=== PATIENT | female | born 1960 | race Caucasian/White ===

== ENCOUNTER → 2016-05-19 | Outpatient (CLI) | payer BC, OTHER ==
[~2016-05-19] VITALS: Ht 177.8 cm; Wt 79.5 kg
[~2016-05-19] MED LIST: COMPAZINE5 MG PO; GLUCOSAMINE HC500 MG; HYDROCODON-ACE1 EAC5 PO; HYDROCODONE-APA1 TA1; LEVOTHYROXINE0.05 MG; LOPRESSOR25 PO; MAXZIDE-25 MG1 EACH PO; MOBIC15 MG PO; NEURONTIN 300300 M1 PO; ORPHENADRINE C100 M2 PO; OXYCONTIN10 M1 PO; POTASSIUM20; PROZAC; UNICOMPLEX M TA1 TA1; [UNRECOGNIZED DRUG - CODE]
--- NOTE | ~2016-05-19 | HPC ---
[facility] [place] [address] PAIN MANAGEMENT CONSULTATION Name: ONI KENT Room #: REG [place] Field#: [id number] Admission: 05/19/16 Attend Phys: Celestino Max, DO Discharge: Date of : 62 Report #: [id number] THIS REPORT FOR: //name// CC: Jake Max The patient is a pleasant 56-year-old female being treated for symptomatic cervical radiculopathy status post decompressive laminectomy, neuropathic pain component and myofascial pain symptom. The patient on 01/31/2016 was evaluated, she had been given a single epidural injection and marked with 90% improvement of pain. Repeat injection afforded a little bit less efficacy. I ordered EMG, which was obtained, EMG accomplished 02/21/[address] Butler notes mild ulnar neuropathy (right) with no electrophysiologic evidence of right carpal tunnel syndrome nor cervical radiculopathy. The patient has been working with physical therapy ([facility]) last visit was 05/17/2016. They suggested that the patient's symptoms were consistent with "cervical, thoracic instability." Nonetheless, she had been doing very well with physical therapy in March, though in April, she developed some GI issues and got busy with the holidays and stopped doing the exercises and her symptoms recurred. Physical evaluation suggested patient would benefit from renewing physical therapy. She returns to the pain clinic today, we had a prolonged visit. She is seen in the company of her . She was seen from approximately 14:15 to 14:40, we spent this time reviewing several issues. She notes her cervical radicular symptoms did improve with physical therapy, they are beginning to recur. She rates her pain, maybe a 3 on a 0-10 visual analog scale, primarily right arm. She is also noting some pain in the right hip and does appear to have a little bit of a right trochanteric bursitis. She notes this is chronic and seems to be exacerbated if she sits for a period of time, pain in the right hip is exacerbated when she stands. PHYSICAL EXAMINATION: Shows a 56-year-old female, BMI is 25.1 kilograms per meter squared. Vital signs are stable as noted in the EMR. Cervical range of motion is full, Lehmitte is negative. Upper extremity strength is preserved. Biceps, triceps, brachioradialis reflexes are symmetric. Hand grasp is symmetric. Tinel's is negative. Rises from chair easily. Gait is tandem though she does have a slight palpable nodule over the right trochanteric bursa. This is very tender to palpation. Passive rotation of the hip slightly exacerbates pain. Narendra test is negative. ASSESSMENT: Cervical radiculopathy, status post decompressive laminectomy, neuropathic pain component, relatively quiescent at present, myofascial pain, and right trochanteric bursitis. RECOMMENDATION: Discussion at length with the patient about therapeutic [address] [address] PAIN MANAGEMENT CONSULTATION Name: YOLIONI Yeimi Room #: REG [facility] Field#: [id number] Admission: 05/19/16 Attend Phys: Celestino Max DO Discharge: Date of : 62 Report #: [id number] options. Currently, she is utilizing appropriate medications through Dr. Whitmore. I will renew physical therapy for right shoulder and arm. We did discuss range of motion and stretching as well as aerobic activity including Tia Chi exercises. The patient and were interested in pursuing this. I will see the patient simply on an as needed basis if she has recurrence of radicular symptoms and/or if that right trochanteric bursitis becomes problematic to the point that she requires interventional therapy (trochanteric bursa injection). Thanks for allowing me to participate in the patient's care. Discharged in good and stable condition after 25+ minute visit was spent counseling the patient. <ELECTRONICALLY SIGNED> By: Celestino Max DO 05/22/16 0917 [id number] [id number] Celestino Max DO /nt
[2016-05-19 13:52] VITALS: BP 123/79
== END ==
LOC: PAIN 07:10
DX: M54.12 Radiculopathy, cervical region (principal); M96.1 Postlaminectomy syndrome, not elsewhere classified; M79.1 Myalgia; M70.61 Trochanteric bursitis, right hip; I10 Essential (primary) hypertension

== ENCOUNTER → 2016-08-10 | Outpatient (CLI) | payer BC, OTHER ==
[~2016-08-10] VITALS: Ht 175.3 cm; Wt 77.2 kg
[~2016-08-10] MED LIST changes: +CYMBALTA30 MG PO; +MIMVEY LO 0.5-1 EACH PO; +ZANAFLEX4 MG PO
--- NOTE | ~2016-08-10 | HPC ---
[facility] [place] [address] PAIN MANAGEMENT CONSULTATION Name: ONI KENT Room #: REG [facility] Rashida#: [id number] Admission: 08/10/16 Attend Phys: Celestino Max DO Discharge: Date of : 62 Report #: [id number] THIS REPORT FOR: //name// CC: Jake Max The patient is a 56-year-old female, typically treated for cervical radiculopathy, status post decompressive laminectomy, neuropathic pain, and right trochanteric bursitis. The patient was last seen in pain clinic on 05/19/2016. She had 2 cervical epidural injections 2015 with about 90% improvement. I did obtain an EMG in February of the upper extremities, noted a mild right ulnar neuropathy with no electrophysiologic evidence of carpal tunnel or cervical radicular neuropathies. At last visit, she was noting increasing pain in the right hip and low back. Diagnosed with trochanteric bursitis at that time, suggested physical therapy. I talked about possibly trochanteric bursa injection. In the interval since I last saw her, she did have an IM injection of steroid with nominal improvement. This was given simply in the gluteal area, not at the area of tenderness. She did get an MRI of the right hip with ongoing pain in this area. The MRI does note no evidence of mass lesion, marked gluteus medius tendinosis and mild gluteus minimus tendinosis, mild to moderate right osteoarthritis. She notes ongoing pain in the right gluteal area. No specific radicular symptoms are noted. She does; however, have a lot of myalgias that are transitory, they appears to be more of a fibromyalgia ____ picture. She does take a low dose serotonin reuptake inhibitor (Prozac 10 mg daily). PHYSICAL EXAMINATION: Shows a 56-year-old female, BMI is 25.1 kg/m2. Blood pressure is 129/80, pulse 94, and respirations 16. Alert and oriented to person, place and time, judged to be a reasonable historian. Rises from chair using armrest. She has some tenderness in the right hip. Modestly antalgic gait, point tenderness over the right trochanteric bursa and point tenderness in the gluteus minimus and medius. Active resistance to rotation does not exacerbate pain (negative piriformis). Narendra test is negative (negative SI mediated pain). She does have pain with active abduction of the hip. Again, history of some myalgias in the upper back, which are not present at this time. ASSESSMENT: 1. Component of myofascial pain. We talked today about medication management. We have elected to start the patient on low dose Cymbalta 30 mg concurrent with her Prozac 10 mg. I will see her back in 4 weeks for reevaluation. Our plan will be to increase to 60 mg of Cymbalta and discontinue Prozac. 2. Right trochanteric bursitis and myofascial pain affecting right gluteus [address] [address] PAIN MANAGEMENT CONSULTATION Name: ONI KENT Yeimi Room #: REG [facility] Field#: [id number] Admission: 08/10/16 Attend Phys: Celestino Max DO Discharge: Date of : 62 Report #: [id number] medius and gluteus minimus. RECOMMENDATION: 1. Right trochanteric bursa injection today and right trigger point injections times 2, right gluteus medius and gluteus minimus muscle groups. 2. Stretch, ice, yoga and tiana chi were all discussed today. Follow up in 30 days for reevaluation. I did also take the liberty of discontinuing the patient's orphenadrine and we will trial tizanidine 4 mg 1-2 at bedtime. PROCEDURE NOTE: Right trochanteric bursa injection. After written informed consent was obtained, the patient was placed in the left lateral decubitus position. Skin overlying the bursa was cleansed with alcohol. Using a 25-gauge needle, approximately 30 mg triamcinolone plus 3 mL of local anesthesia (50:50 mix of 0.5% preservative-free bupivacaine plus 1.5% preservative-free Xylocaine with 1:200,000 epinephrine) was injected into and around the right trochanteric bursa. Attention was then directed at the right gluteus medius and gluteus minimus muscle groups with multiple trigger points noted within. Area was cleansed with alcohol. Using another 25-gauge needle, again 30 mg of triamcinolone plus 6 mL of the same local anesthetic was injected into and around the 2 discrete trigger points. All needles removed, the area was cleansed, Band-Aids applied. The patient was monitored for an appropriate period of time, discharged in good and stable condition, noting 60% improvement in baseline pain (baseline pain was 5/10 on admission, 2/10 on discharge). Thank you for allowing me to participate in the patient's care. I will see her back in 4 weeks for reevaluation. By: 1228 2250 Celestino Max, DO /nt
[2016-08-10 10:33] VITALS: BP 129/80
== END | disposition home or self-care (01) ==
LOC: PAIN 06:58
DX: M70.61 Trochanteric bursitis, right hip (principal); M54.12 Radiculopathy, cervical region; M79.1 Myalgia; Z98.890 Other specified postprocedural states

== ENCOUNTER → 2016-09-07 | Outpatient (CLI) | payer BC, OTHER ==
[~2016-09-07] VITALS: Ht 177.8 cm; Wt 75.7 kg
[~2016-09-07] MED LIST changes: +CYMBALTA60 MG PO
--- NOTE | ~2016-09-07 | HPC ---
[facility] [address] [place] [address] PAIN MANAGEMENT CONSULTATION Name: ONI KENT Room #: REG [facility]#: [id number] Admission: 09/07/16 Attend Phys: Celestino Max DO Discharge: Date of : 62 Report #: [id number] THIS REPORT FOR: //name// CC: Jake Max The patient is a 56-year-old female being treated for symptomatic cervical radiculopathy status post decompressive laminectomy, neuropathic pain. Last visit, she was having some right trochanteric bursitis, injected that joint with some trigger points and component of myofascial pain. Returns to pain clinic today noting that the hip and myofascial pain component is significantly improved. In fact rates pain down to 1 on a 0-10 visual analog scale. Notes "70%" improvement following the injection. Primary concern remains right shoulder pain. She has paresthesia going into the fingers using the computer. PHYSICAL EXAMINATION: Shows a 56-year-old female, BMI is 23.9 kilograms per meter squared. Vital signs stable as noted in the EMR. Cervical range of motion is limited, positive limit. Pain going into the right shoulder, has some muscle spasm in the right trapezius and suprascapular muscles. Deep tendon reflexes are diminished on the right compared to the left. Hand grasp is symmetric at this time. Reviewed the MRI from 07/26/2015 noting postoperative fusion, posterior bridging and stenosis. Fusion is C5-C6. Disk space narrowing is noted at C6-C7. ASSESSMENT: Symptomatic cervical radiculopathy status post decompressive laminectomy in a patient requiring complex medication management. RECOMMENDATION: Continue Cymbalta. We will increase from 30 to 60 mg, which was started at last visit is helping with myofascial pain component. Discontinue Prozac. We will continue tizanidine 4 mg 1 to 2 at bedtime. She does not require the latter prescription. We will evaluate efficacy of the increase in Cymbalta in about 2-3 weeks, likely benefit from repeat cervical epidural injection. Prior cervical epidural injections in July and December of last year did give good relief of these right radicular symptoms. If symptoms continue; however, we will want to have patient revisit with neurosurgery. Discharged in good and stable condition. <ELECTRONICALLY SIGNED> By: Celestino Max DO 09/08/16 1308 0740 0930 Celestino Max DO /nt
[2016-09-07 14:36] VITALS: BP 124/84
== END | disposition home or self-care (01) ==
LOC: PAIN 07:34
DX: M54.12 Radiculopathy, cervical region (principal); G62.9 Polyneuropathy, unspecified; M70.61 Trochanteric bursitis, right hip; M79.1 Myalgia

== ENCOUNTER → 2016-09-29 | Outpatient (CLI) | payer BC, OTHER ==
[~2016-09-29] VITALS: Ht 177.8 cm; Wt 74.8 kg
--- NOTE | ~2016-09-29 | HPC ---
[facility] [place] [address] PAIN MANAGEMENT CONSULTATION Name: ONI KENT Room #: REG [facility] [id number] Admission: 09/29/16 Attend Phys: Celestino Max DO Discharge: Date of : 62 Report #: [id number] THIS REPORT FOR: //name// CC: Jake Max HISTORY OF PRESENT ILLNESS: The patient is a pleasant 56-year-old female being treated for cervical radiculopathy status post ACDF, neuropathic pain requiring complex medication management, history of right trochanteric bursitis. Last seen in pain clinic on 09/07/2016, started Cymbalta 30 mg and increased to 60 mg (had the patient discontinue the Prozac at that time), continued tizanidine for muscle spasm. Returns to pain clinic today noting that overall axial back and right hip pain is improved. She thinks that the Cymbalta is helpful. She is requesting renewal on tizanidine. She uses this up to 3 times a day. She is also noting exacerbation of C7 radicular symptoms with paresthesia going into the right index and thumb. PHYSICAL EXAMINATION: Shows 56-year-old female, BMI is 23.7 kilograms per meter squared, blood pressure 113/86, pulse 81, respirations 16. Positive Lhermitte's. Decreased right triceps strength, decreased right triceps deep tendon reflexes all compared to the left. ASSESSMENT: Symptomatic cervical radiculopathy by clinical exam and history. RECOMMENDATION: cervical epidural injection under fluoroscopy today, the patient had prior had good relief with cervical epidural injections back in 2007 and 2005. PROCEDURE: Cervical epidural injection under fluoroscopy. PROCEDURE NOTE: After written and informed consent was obtained including risk of dural puncture, spinal cord trauma, paralysis and increased pain, the patient was taken to the fluoroscopy suite and placed in the prone position, with appropriate abdominal bolstering, neck was flexed, palms under the thighs. Skin was prepped with ChloraPrep. Sterile draping was applied. Skin wheal with 1% Xylocaine was raised. A 22-gauge 3-1/2 inch epidural Tuohy needle was placed via a midline approach at the C7-T1 interspace, advanced under biplanar fluoroscopy using continuous loss of resistance. With appropriate loss of resistance at the expected depth on lateral view, the glass loss of resistance syringe was disconnected. A low volume extension tubing was connected to the needle and a 5 mL syringe. Negative aspiration for cerebrospinal fluid or blood was noted. A 1 mL of Omnipaque was injected which showed spread within the epidural space on biplanar fluoroscopy. This was followed with 80 mg of triamcinolone plus 1 mL of 1.5% preservative Xylocaine. Needle was withdrawn to the interspinous ligament, 0.5 mL of Xylocaine was used to flush the needle. The needle was then completely withdrawn. The area was cleansed. Band-Aid was [address] [address] PAIN MANAGEMENT CONSULTATION Name: ONI KENT Room #: REG [facility] Field#: [id number] Admission: 09/29/16 Attend Phys: Celestino Max DO Discharge: Date of : 62 Report #: [id number] applied. The patient was allowed to move off the procedure table and ambulated to the recovery room, monitored for an appropriate period of time, discharged in good and stable condition. By: 1233 Celestino Max DO /wilton
[2016-09-29 10:52] VITALS: BP 113/86
== END | disposition home or self-care (01) ==
LOC: PAIN 05:50
DX: M54.12 Radiculopathy, cervical region (principal); G89.29 Other chronic pain; Z98.890 Other specified postprocedural states

== ENCOUNTER → 2016-10-23 | Outpatient (CLI) | payer BC, OTHER ==
[~2016-10-23] VITALS: Ht 177.8 cm; Wt 76.1 kg
--- NOTE | ~2016-10-23 | HPC ---
[facility] [place] [address] PAIN MANAGEMENT CONSULTATION Name: ONI KENT Room #: REG [facility]#: [id number] Admission: 10/23/16 Attend Phys: Celestino Max DO Discharge: Date of : 62 Report #: [id number] THIS REPORT FOR: //name// CC: Jake Max DATE OF SERVICE: 10/23/2016 The patient is a very pleasant 56-year-old female being treated for cervical radiculopathy status post decompressive surgery and neuropathic pain component. The patient was last seen in the pain clinic 09/30/2015. She was having ongoing right cervical radicular symptoms. We progressed with cervical epidural injection at that time. This afforded "100% relief" for 3 days and the pain began to recur. She does, however, note that today, pain is fairly nominal 1 on a 0-10 visual analog scale; however, with specific activities, specifically cervical extension or significant range of motion of the right arm, she does have recurrent pain in the neck, right shoulder and arm. PHYSICAL EXAMINATION: Shows positive Lhermitte's, actually fairly good upper extremity strength. No discernible trigger points are noted in the splenius capitis, trapezius or upper thoracic paravertebral muscles, though she is diffusely tenderness throughout. ASSESSMENT: Symptomatic cervical radiculopathy and neuropathic pain component. The patient had had a cervical surgery sometime ago. Does have some ongoing cervical radicular symptoms. RECOMMENDATIONS: After discussion with the patient, we elected to seek authorization to repeat epidural injection under fluoroscopy at C7-T1. If this does not afford ongoing adequate relief, we will order newer MRI (prior MRIs dated from 07/2015). We will then refer the patient back to her neurosurgeon for consideration for further definitive intervention if indicated. Discharged in good and stable condition. Follow up on 10/30/2016 for repeat cervical epidural injection under fluoroscopy. Again, if this does not afford adequate relief in 1-2 weeks, we will get another MRI with and without contrast of the cervical spine in consideration of further definitive intervention. By: [id number] Celestino Max DO /nt
[2016-10-23 11:13] VITALS: BP 142/94
== END | disposition home or self-care (01) ==
LOC: PAIN 06:53
DX: M54.12 Radiculopathy, cervical region (principal); G89.29 Other chronic pain; Z88.0 Allergy status to penicillin; Z88.2 Allergy status to sulfonamides; Z88.8 Allergy status to other drugs, medicaments and biological substances; Z98.890 Other specified postprocedural states

== ENCOUNTER → 2016-10-30 | Outpatient (CLI) | payer BC, OTHER ==
[~2016-10-30] VITALS: Ht 177.8 cm; Wt 75.7 kg
--- NOTE | ~2016-10-30 | HPC ---
[facility] [place] [address] PAIN MANAGEMENT CONSULTATION Name: ONI KENT Room #: REG [facility] Rashida#: [id number] Admission: 10/30/16 Attend Phys: Celestino Max DO Discharge: Date of : 62 Report #: [id number] THIS REPORT FOR: //name// CC: Jake Max HISTORY OF PRESENT ILLNESS: The patient is a very pleasant 56-year-old female seen in consultation on 10/23/2016. She is status post anterior cervical disk fusion with ongoing radicular symptoms, last was on 10/23/2016. We sought authorization for cervical epidural injection under fluoroscopy. She presents to the pain clinic today for that injection. We will tentatively make an appointment to see her back in 2 weeks. If she does not had excellent relief with this injection, we will order an MRI with and without contrast. ASSESSMENT: Symptomatic cervical radiculopathy. PROCEDURE: Cervical epidural injection under fluoroscopy. PROCEDURE NOTE: After written and informed consent was obtained including risk of dural puncture, spinal cord trauma, paralysis and increased pain, the patient was taken to the fluoroscopy suite and placed in the prone position, with appropriate abdominal bolstering, neck was flexed, palms under the thighs. Skin was prepped with ChloraPrep. Sterile draping was applied. Skin wheal with 1% Xylocaine was raised. A 22-gauge 3-1/2 inch epidural Tuohy needle was placed via a midline approach at the C7-T1 interspace, advanced under biplanar fluoroscopy using continuous loss of resistance. With appropriate loss of resistance at the expected depth on lateral view, the glass loss of resistance syringe was disconnected. A low volume extension tubing was connected to the needle and a 5 mL syringe. Negative aspiration for cerebrospinal fluid or blood was noted. A 1 mL of Omnipaque was injected which showed spread within the epidural space on biplanar fluoroscopy. This was followed with 80 mg of triamcinolone plus 1 mL of 1.5% preservative Xylocaine. Needle was withdrawn to the interspinous ligament, 0.5 mL of Xylocaine was used to flush the needle. The needle was then completely withdrawn. The area was cleansed. Band-Aid was applied. The patient was allowed to move off the procedure table and ambulated to the recovery room, monitored for an appropriate period of time, discharged in good and stable condition. <ELECTRONICALLY SIGNED> By: Celestino Max DO 11/03/16 1606 1550 2104 Celestino Max DO /nt
[2016-10-30 14:04] VITALS: BP 117/82
== END | disposition home or self-care (01) ==
LOC: PAIN 06:57
DX: M54.12 Radiculopathy, cervical region (principal)

== ENCOUNTER → 2016-12-08 | Outpatient (CLI) | payer BC, OTHER | LOC: RAD 11:12 | DX: Z12.31 Encounter for screening mammogram for malignant neoplasm of breast (principal) ==

== ENCOUNTER → 2017-01-19 | Outpatient (CLI) | payer BC, OTHER ==
[~2017-01-19] VITALS: Ht 177.8 cm; Wt 73.5 kg
--- NOTE | ~2017-01-19 | HPC ---
[facility] [address] [place] [address] PAIN MANAGEMENT CONSULTATION Name: ONI KENT Yeimi [facility] #: [facility] [id number] Admission: 01/19/17 Attend Phys: Celestino Max DO Discharge: Date of : 62 Report #: [id number] THIS REPORT FOR: //name// CC: Jake Max DATE OF SERVICE: 01/19/2017 The patient is a 56-year-old female being treated for symptomatic cervical radiculopathy status post ACDF. She has had cervical epidural injections 09/29/2016 and 10/30/2016. Injections afforded very good near 100% relief, but pain has recurred. First injection gave 100% relief for several days. Second injection actually gave 60% relief for 2-3 months, but again, pain has begun to recur. She notes currently pain is in the neck, right shoulder and arm, chronic tingling, aching sensation, rates pain of 4-5 on a VAS, seems to be exacerbated with activity, using her arm and movement. I had reviewed MRI of the cervical spine from 07/2015, the patient had the aforenoted ACDF, anterior screws and plates affixing C5 and C6. Neural foraminal narrowing at C4-C5 with facet changes and some slight ridging at C5-C6, but no dramatic stenosis. With ongoing cervical radicular symptoms with transient improvement following epidural injections, I had ordered an EMG, this was obtained 02/21/2016. It showed some mild right ulnar neuropathy but no significant cervical radiculopathy on EMG findings. Again, however, we left the patient with classic cervical radicular symptoms by history. PHYSICAL EXAMINATION: Today shows 56-year-old female, BMI is 23.2 kilograms per meter squared. Blood pressure 119/80, pulse 67, respirations 15. Cervical range of motion is modestly limited. She has a positive Lhermitte's with symptoms radiating into the right shoulder and arm, paresthesia down into the hand. Some slight decrease right biceps and deltoid strength about 3/5, all else is 4/5. Deep tendon reflexes are brisk, 2+/4. Slight diminution of the right biceps reflex compared to left. Negative Tinel's. Hand grasp is symmetric. Peripheral pulses are good. Skin integument is intact. ASSESSMENT: Symptomatic cervical radiculopathy status post anterior decompressive laminectomy, neuropathic pain component. The patient has had transient relief with epidural injections. RECOMMENDATIONS: 1. We will repeat cervical epidural injection today. 2. I have taken the liberty of writing for MRI of the cervical spine with and without contrast. If today's injection does not afford ongoing long lasting relief, we will repeat the MRI and have her follow [place] [address] PAIN MANAGEMENT CONSULTATION Name: ONI KENT Room #: REG [facility] Field#: [id number] Admission: 01/19/17 Attend Phys: Celestino Max DO Discharge: Date of : 62 Report #: [id number] surgeon, Dr. Navas at [facility]. ASSESSMENT: Symptomatic cervical radiculopathy status post decompressive laminectomy. PROCEDURE: Cervical epidural injection under fluoroscopy. PROCEDURE NOTE: After written and informed consent was obtained including risk of dural puncture, spinal cord trauma, paralysis and increased pain, the patient was taken to the fluoroscopy suite and placed in the prone position, with appropriate abdominal bolstering, neck was flexed, palms under the thighs. Skin was prepped with ChloraPrep. Sterile draping was applied. Skin wheal with 1% Xylocaine was raised. A 22-gauge 3-1/2 inch epidural Tuohy needle was placed via a midline approach at the C7-T1 interspace, advanced under biplanar fluoroscopy using continuous loss of resistance. With appropriate loss of resistance at the expected depth on lateral view, the glass loss of resistance syringe was disconnected. A low volume extension tubing was connected to the needle and a 5 mL syringe. Negative aspiration for cerebrospinal fluid or blood was noted. A 1 mL of Omnipaque was injected which showed spread within the epidural space on biplanar fluoroscopy. This was followed with 80 mg of triamcinolone plus 1 mL of 1.5% preservative Xylocaine. Needle was withdrawn to the interspinous ligament, 0.5 mL of Xylocaine was used to flush the needle. The needle was then completely withdrawn. The area was cleansed. Band-Aid was applied. The patient was allowed to move off the procedure table and ambulated to the recovery room, monitored for an appropriate period of time, discharged in good and stable condition. By: [id number] Celestino Max DO /wilton
[2017-01-19 09:28] VITALS: BP 119/80
== END ==
LOC: PAIN 11-13 06:50
DX: M54.12 Radiculopathy, cervical region (principal); G89.29 Other chronic pain; Z98.890 Other specified postprocedural states; Z88.0 Allergy status to penicillin; Z88.2 Allergy status to sulfonamides

== ENCOUNTER → 2017-07-11 | Outpatient (CLI) | payer BC, OTHER | LOC: ULTRA 08:17 | DX: R10.11 Right upper quadrant pain (principal); R10.2 Pelvic and perineal pain ==

== ENCOUNTER → 2017-10-25 | Outpatient (CLI) | payer BC, OTHER | LOC: NUC 09:11 | DX: R10.11 Right upper quadrant pain (principal) ==

== ENCOUNTER → 2017-11-28 | Outpatient (CLI) | payer BC, OTHER | LOC: CAT 07:59 | DX: K42.9 Umbilical hernia without obstruction or gangrene (principal); M51.36 Other intervertebral disc degeneration, lumbar region ==

== ENCOUNTER → 2018-06-20 | Outpatient (CLI) | payer BC | LOC: MRI 07:23 | DX: M47.26 Other spondylosis with radiculopathy, lumbar region (principal); M51.16 Intervertebral disc disorders with radiculopathy, lumbar region; M43.16 Spondylolisthesis, lumbar region ==

== ENCOUNTER → 2018-08-30 | Outpatient (CLI) | payer BC | LOC: RAD 15:50 | DX: Z12.31 Encounter for screening mammogram for malignant neoplasm of breast (principal) ==

== ENCOUNTER → 2019-04-11 | Outpatient (CLI) | payer BC | LOC: BC 13:20 | DX: R92.8 Other abnormal and inconclusive findings on diagnostic imaging of breast (principal) ==

== ENCOUNTER → 2019-11-12 | Outpatient (CLI) | payer BC | LOC: CAT 10:50 | PROVIDERS: ATTEND Family Medicine | DX: S06.0X0A Concussion without loss of consciousness, initial encounter (principal); X58.XXXA Exposure to other specified factors, initial encounter; Y93.89 Activity, other specified; Y92.89 Other specified places as the place of occurrence of the external cause; Y99.8 Other external cause status ==

== ENCOUNTER → 2020-05-06 | Outpatient (CLI) | payer BC | LOC: RAD 07:56 | PROVIDERS: ATTEND Nurse Practitioner Obstetrics & Gynecology | DX: Z12.31 Encounter for screening mammogram for malignant neoplasm of breast (principal) ==

== ENCOUNTER → 2021-01-19 | Outpatient (CLI) | payer OTHER | LOC: CAT 10:21 | PROVIDERS: ATTEND Nurse Practitioner Obstetrics & Gynecology | DX: Z13.6 Encounter for screening for cardiovascular disorders (principal) ==

== ENCOUNTER → 2021-04-04 | Outpatient (CLI) | payer BC | LOC: SJCVCIMAG 08:45 | PROVIDERS: ATTEND Internal Medicine Cardiovascular Disease | DX: R00.2 Palpitations (principal); R55 Syncope and collapse ==

== ENCOUNTER → 2021-05-09 | Outpatient (CLI) | payer BC, OTHER | LOC: BC 09:05 | PROVIDERS: ATTEND Nurse Practitioner Obstetrics & Gynecology | DX: Z12.31 Encounter for screening mammogram for malignant neoplasm of breast (principal); N64.89 Other specified disorders of breast ==